=== PATIENT | male | born 1980 ===

== ENCOUNTER 2021-04-12 15:57 | Emergency (ER) | payer SELFPAY ==
[~2021-04-12] VITALS: Ht 177.8 cm; Wt 71.0 kg
[2021-04-12] MEDS ORDERED: SODIUM CHLORIDE 0.9% 1,000ML IVBOLUS ONE (16:30)
--- NOTE | 2021-04-12 16:33 | NUR ---
PT BIB EMS FOR ETOH, ALTERED, AND HYPERGLYCEMIA. BS 412 IN ED. PT IS DIRTY, FOUND IN DIRT W 12 CANS OF BEER NEAR BY. PT NOT RESPONDING TO VERBAL STIMULI,
[2021-04-12 16:46] LABS: FIO2 ROOM AIR %; PH, VENOUS 7.325 pH (7.320-7.420)
--- NOTE | 2021-04-12 16:49 | NUR ---
IV FLUID STARTED, WARM BLANKET GIVEN, BED RAILS UP X2.
[2021-04-12 16:58] LABS: ALANINE AMINOTRANSFERASE 33 U/L (12-78); ALBUMIN 3.2 g/dL (3.4-5.0); ANION GAP 8 mmol/L (5-15); CALCIUM 8.1 mg/dL (8.5-10.1); CHLORIDE 105 mmol/L (98-107)
[2021-04-12 16:59] LABS: BASOPHILS % (AUTO) 1 % (0-1); EOSINOPHILS % (AUTO) 1 % (1-7); LYMPHOCYTES % (AUTO) 30 % (22-44); MEAN CORPUSCULAR HEMOGLOBIN 29.3 pg (27.5-34.5); MEAN CORPUSCULAR HGB CONC 33.6 g/dL (33.2-36.2); MEAN PLATELET VOLUME 7.8 fL (7.4-10.4); MONOCYTES % (AUTO) 6 % (2-9); NEUTROPHILS % (AUTO) 63 % (42-75); PLATELET COUNT 322 x10^3/uL (130-400); RED BLOOD COUNT 5.16 x10^6/uL (4.38-5.82)
[2021-04-12 17:00] LABS: ALKALINE PHOSPHATASE 131 U/L (45-117); BILIRUBIN,TOTAL 0.3 mg/dL (0.2-1.0); CREATINE KINASE, TOTAL 90 U/L (39-308); TOTAL PROTEIN 7.2 g/dL (6.4-8.2)
[2021-04-12 17:11] VITALS: BP 106/56
--- NOTE | 2021-04-12 17:11 | NUR ---
PT AWAKE, USING CURSE WORDS AT THIS NURSE. INCREASE EMOTIONAL SUPPORT GIVEN.
[2021-04-12 17:23] LABS: ACETONE, SERUM Negative (Negative)
--- NOTE | 2021-04-12 18:11 | NUR ---
Patient/Caregiver given discharge instructions and they have confirmed that they understand the instructions. Patient ambulatory with steady gait. NAD, all questions answered appropriately, denies additional needs at this time. No personal belongings left in room after discharge.
== END 2021-04-12 18:13 | disposition home or self-care (01) ==
LOC: ED 18:07
DX: R41.82 Altered mental status, unspecified (principal); E10.65 Type 1 diabetes mellitus with hyperglycemia; R06.89 Other abnormalities of breathing; R94.31 Abnormal electrocardiogram [ECG] [EKG]
CPT/HCPCS: 36415; 71045; 80053; 82010; 82550; 82803; 82962; 83690; 85025; 93005; 96360; 99285; J7030